=== PATIENT | female | born 1955 | race Caucasian/White ===

== ENCOUNTER 2019-02-07 20:22 | Emergency (ER) | payer BC ==
[~2019-02-07] VITALS: Ht 165.1 cm; Wt 76.2 kg
[2019-02-07 20:53] VITALS: BP 133/81
[2019-02-07 21:10] LABS: ABSOLUTE NEUTROPHILS 4.2 thou/uL (1.4-8.2); BASOPHILS 0.4 % (0.0-2.0); EOSINOPHILS 0.6 % (0.0-3.0); HEMATOCRIT 41.8 % (37.0-47.0); HEMOGLOBIN 14.2 gm/dL (12.0-15.0); LYMPHOCYTES 25.5 % (24.0-44.0); MCH 29.2 pg (26.0-34.0); MCHC 34.1 g/dL (28.0-37.0); MCV 85.5 fL (80.0-100.0); MONOCYTES 7.3 % (1.0-8.0); PLATELET COUNT 177 thou/uL (150-400); POLYS 66.2 % (36.0-66.0); RBC 4.89 mil/uL (4.20-5.00); RDW 12.9 % (10.5-14.5); WBC 6.3 thou/uL (4.0-11.0)
[2019-02-07 21:18] LABS: CALCIUM 9.2 mg/dL (8.5-10.1); CREATININE 0.9 mg/dL (0.6-1.0); POTASSIUM 3.3 mmol/L (3.5-5.1)
[2019-02-07] MEDS ORDERED: SYNTHROID75 MCG PO (21:35)
[2019-02-07 21:44] LABS: ALBUMIN 4.3 g/dL (3.4-5.0); DIRECT BILIRUBIN 0.1 mg/dL (<0.1-0.3); TOTAL BILIRUBIN 0.4 mg/dL (<0.1-1.0); TOTAL PROTEIN 7.8 g/dL (6.4-8.2)
[2019-02-07] MEDS ORDERED: FLONASE 0.05%50 MCG NASAL (22:03)
[2019-02-07] MEDS ORDERED: SYNTHROID125 MC1 PO (22:04)
[2019-02-07] MEDS ORDERED: NEXIUM40 MG PO (22:04)
[2019-02-07] MEDS ORDERED: SUDAFED 12 HOU120 MG PO (22:04)
[2019-02-07 22:50] LABS: URINE BILIRUBIN NEGATIVE (Negative); URINE BLOOD NEGATIVE (Negative); URINE CLARITY CLEAR; URINE COLOR YELLOW; URINE GLUCOSE-RANDOM* NEGATIVE (Negative); URINE KETONES 2+ (Negative); URINE LEUKOCYTES TRACE (Negative); URINE NITRITE NEGATIVE (Negative); URINE PROTEIN (DIPSTICK) NEGATIVE (Negative); URINE UROBILINOGEN 0.2 E.U./dl (0.2-1.0)
[2019-02-07] MEDS ORDERED: ZOFRAN ODT4 MG PO (23:53)
--- NOTE | 2019-02-08 16:01 | EKG ---
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1955 Requested By: Melissa Cruz Order Number: [id number] MD: Pal Mckee Measurements Intervals [place] Rate: 75 P: 46 NM: 131 QRS: 41 QRSD: 93 T: 63 QT: 454 QTc: 508 Interpretive Statements Sinus rhythm Probable left atrial enlargement Nonspecific T abnrm, anterolateral leads Prolonged QT interval No previous ECG available for comparison Electronically Signed On 02-08-2019 16:00:53 CDT by Pal Mckee [email or web address] ��������������������������������������������� <ELECTRONICALLY SIGNED> ���������������������������������������� By: Pal Mckee MD ��������������������������������������������� 02/08/191599 40 40 Pal Mckee MD /PADMAJA
== END 2019-02-08 00:07 | disposition home or self-care (01) ==
LOC: ER 20:22
PROVIDERS: Emergency Medicine
DX: R11.0 Nausea (principal); R10.30 Lower abdominal pain, unspecified; K58.9 Irritable bowel syndrome, unspecified; R42 Dizziness and giddiness

== ENCOUNTER 2019-02-10 17:27 | Emergency (ER) | payer BC ==
[~2019-02-10] VITALS: Ht 165.1 cm; Wt 77.1 kg
[~2019-02-10 17:27] MED LIST: FLONASE 0.05%50 MCG NASAL; NEXIUM40 MG PO; SUDAFED 12 HOU120 MG PO; SYNTHROID125 MC1 PO; SYNTHROID75 MCG PO; ZOFRAN ODT4 MG PO
[2019-02-10 19:09] LABS: URINE BILIRUBIN NEGATIVE (Negative); URINE BLOOD 1+ (Negative); URINE CLARITY CLEAR; URINE COLOR YELLOW; URINE GLUCOSE-RANDOM* NEGATIVE (Negative); URINE KETONES TRACE (Negative); URINE NITRITE-REFLEX NEGATIVE (Negative); URINE PROTEIN (DIPSTICK) NEGATIVE (Negative); URINE UROBILINOGEN 0.2 E.U./dl (0.2-1.0)
[2019-02-10 19:10] LABS: URINE LEUKOCYTES-REFLEX 1+ (Negative)
[2019-02-10 19:12] LABS: HEMATOCRIT 44.7 % (37.0-47.0); MCH 29.1 pg (26.0-34.0); MCHC 33.5 g/dL (28.0-37.0); MCV 86.9 fL (80.0-100.0); PLATELET COUNT 194 thou/uL (150-400); RBC 5.15 mil/uL (4.20-5.00); WBC 5.8 thou/uL (4.0-11.0)
[2019-02-10 19:22] LABS: SQUAMOUS 4-10 Moderate /LPF (0-3)
[2019-02-10 19:22] LABS: CALCIUM 9.6 mg/dL (8.5-10.1); CREATININE 0.8 mg/dL (0.6-1.0); POTASSIUM 3.4 mmol/L (3.5-5.1)
[2019-02-10 19:23] LABS: BACTERIA-REFLEX 1-9 Few /HPF (None Seen); CASTS None Seen /LPF (None Seen); CRYSTALS None Seen /LPF (None Seen); URINE RBC 0-2 Rare /HPF (0-2); URINE WBC-REFLEX 6-15 Few /HPF (0-5)
[2019-02-10 20:18] LABS: ABSOLUTE NEUTROPHILS 2.8 thou/uL (1.4-8.2); ANISOCYTOSIS 1+
[2019-02-10] MEDS ORDERED: ANTIVERT25 MG PO (21:57)
[2019-02-10 22:02] VITALS: BP 174/75
--- NOTE | 2019-02-13 18:07 | EKG ---
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1955 Requested By: Melissa Cruz Order Number: [id number] MD: Gregory Singh Measurements Intervals [place] Rate: 78 P: 49 IL: 126 QRS: 27 QRSD: 91 T: 33 QT: 395 QTc: 450 Interpretive Statements Sinus rhythm Abnormal R-wave progression, early transition Compared to ECG 02/07/2019 20:41:52 Prolonged QT interval no longer present Electronically Signed On 02-13-2019 18:07:07 CDT by Gregory Singh [email or web address] ��������������������������������������������� <ELECTRONICALLY SIGNED> ���������������������������������������� By: Gregory Singh MD, [facility] ��������������������������������������������� 02/13/191806 06 06 Gregory Singh MD, [facility] /EPI
== END 2019-02-10 22:03 | disposition home or self-care (01) ==
LOC: ER 17:27
PROVIDERS: Emergency Medicine
DX: J32.9 Chronic sinusitis, unspecified (principal); R42 Dizziness and giddiness; K58.9 Irritable bowel syndrome, unspecified; Z87.891 Personal history of nicotine dependence